=== PATIENT | female | born 1975 | race Caucasian/White ===

== ENCOUNTER 2017-03-19 10:44 | Emergency (ER) | payer OTHER ==
[~2017-03-19] VITALS: Ht 162.6 cm; Wt 80.0 kg
[~2017-03-19 10:44] MED LIST: ALBU8.5H5 INH; PRED50TA PO; PROM6.25 PO; QUET50TA4
[2017-03-19 10:53] VITALS: Ht 162.6 cm; Wt 80.0 kg
[2017-03-19 11:17] LABS: BASOPHIL # 0.1 10^3/ul (0.0-0.1); BASOPHILS % 0.5 % (0.0-2.0); EOSINOPHILS # 0.3 10^3/ul (0.0-0.5); EOSINOPHILS % 2.7 % (0.0-7.0); HEMATOCRIT 39.3 % (37.0-47.0); HEMOGLOBIN 12.9 g/dl (12.0-16.0); LYMPHOCYTES # 3.1 10^3/ul (0.8-2.9); LYMPHOCYTES % 28.3 % (15.0-51.0); MEAN CORPUSCULAR HEMOGLOBIN 29.2 pg (29.0-33.0); MEAN CORPUSCULAR HGB CONC 32.8 g/dl (32.0-37.0); MEAN CORPUSCULAR VOLUME 88.9 fl (82.0-101.0); MEAN PLATELET VOLUME 10.2 fl (7.4-10.4); MONOCYTE # 0.7 10^3/ul (0.3-0.9); MONOCYTES % 6.6 % (0.0-11.0); NEUTROPHIL # 6.7 10^3/ul (1.6-7.5); NEUTROPHILS % 61.4 % (39.0-77.0); PLATELET COUNT 341 10^3/UL (140-415); RED BLOOD COUNT 4.42 10^6/ul (4.20-5.40); RED CELL DISTRIBUTION WIDTH 13.3 % (11.5-14.5); WHITE BLOOD COUNT 10.9 10^3/ul (4.8-10.8)
--- NOTE | 2017-03-19 11:35 | RADRPT ---
PROCEDURE: XR Chest AP portable CLINICAL INDICATION: Chest pain TECHNIQUE: An AP portable radiograph of the chest was submitted. COMPARISON: 04/25/2015 FINDINGS: Support Hardware: None Cardiovascular: The cardiovascular silhouette appears unremarkable. Lung Wray: The lung wray appear clear with no nodule, alveolar infiltrate, or interstitial promi nence evident. Pleural Spaces: No pneumothorax or pleural effusion is identified. Osseous Structures: The osseous structures appear intact. Soft Tissues: The soft tissues appear unremarkable. IMPRESSION: Stable and unremarkable portable chest. Physician Sharla Date Time Electronically viewed and signed by Marie Humphries Physician on 03/19/2017 11:35 RH/
[2017-03-19 11:37] LABS: ANION GAP 14 (8-16); BLOOD UREA NITROGEN 12 mg/dl (7-20); CALCIUM 8.9 mg/dl (8.4-10.2); CARBON DIOXIDE 26 mmol/L (21-31); CHLORIDE 104 mmol/L (97-110); CREATININE 0.66 mg/dl (0.44-1.00); GLUCOSE 167 mg/dl (70-220); SODIUM 140 mmol/L (135-144)
--- NOTE | 2017-03-19 11:37 | ERD ---
ER Documentation Chief Complaint Chief Complaint chest pain x 30 min [place], pain improving after nitro given by ems HPI This is a 41-year-old female with a history of schizophrenia who is presenting with chest pain for approximately 15 minutes. She developed right-sided nonradiating chest pain that developed while she was at [employer] today. The patient was given aspirin and nitro by paramedics and her pain resolved. She does endorse a history of anxiety and did feel anxious during this time, but she did not have any eliciting factors that she reports. She currently is pain- free. She does not endorse shortness of breath. She does not endorse diaphoresis. This is never happened before. She does not have a cardiac history. She does not endorse a history of heart attack and her family. She has a secondary complaint of feeling like her ears are clogged and wanted them to be evaluated. The patient denies feeling sick recently. The patient denies fever or chills. The patient has had no headache or vision changes. The patient denies lightheadedness or dizziness. The patient denies abdominal pain or changes to bowel movements or urination. The patient has had no focal deficits. The patient has had no weakness or numbness or tingling to the face or extremities. ROS All systems reviewed and are negative except as per history of present illness. Medications Home Meds Active Scripts Albuterol Sulfate* (Albuterol Sulfate* HFA) 8.5 Gm Hfa.aer.ad, 1-2 PUFF INH Q4 Y for SHORTNESS OF BREATH, #1 EA Prov:JEANNIE DURAN PA-C 04/25/15 Reported Medications Lurasidone Hcl (LATUDA) 40 Mg Tablet, 40 MG PO QHS, #30 TAB 03/19/17 Citalopram Hydrobromide* (Citalopram Hydrobromide*) 20 Mg Tablet, 20 MG PO DAILY , #30 TAB 03/19/17 Discontinued Reported Medications Quetiapine Fumarate* (Seroquel* XR) 50 Mg Tab.sr.24h 02/11/13 Discontinued Scripts Promethazine w/Codeine* (Phenergan w/Codeine* Syrup) 5 Ml Syrup, 5 ML PO Q4H Y for COUGH, #4 OZ Prov:JEANNIE DURAN PA-C 04/25/15 Prednisone* (Prednisone*) 50 Mg Tablet, 50 MG PO DAILY, #3 TAB Prov:JEANNIE DURAN PA-C 04/25/15 Allergies Allergies: Coded Allergies: Penicillins (Verified Allergy, Unknown, 03/19/17) codeine (Verified Allergy, Unknown, 03/19/17) ibuprofen (Verified Allergy, Unknown, 03/19/17) PMhx/Soc History of Surgery: Yes (TUBULIGATION) Anesthesia Reaction: No Hx Neurological Disorder: No Hx Respiratory Disorders: Yes (ASTHMA) Hx Cardiac Disorders: Yes (HTN) Hx Psychiatric Problems: No Hx Miscellaneous Medical Probl: Yes (BIPOLAR, dm not compliant off meds for over a year) Hx Alcohol Use: Yes (OCASSIONALLY) Hx Substance Use: No Hx Tobacco Use: Yes Smoking Status: Light tobacco smoker FmHx Family History: No diabetes Physical Exam Vitals Vital Signs Date Time Temp Pulse Resp B/P Pulse Ox O2 Delivery O2 Flow Rate FiO2 03/19/17 11:00 Nasal Cannula 2 03/19/17 10:53 97.8 84 18 128/84 100 Physical Exam Const: No apparent distress, well-developed, well-nourished Head: Atraumatic Eyes: Normal Conjunctiva. Extraocular movements intact. ENT: Normal External Ears, Nose and Mouth. Mild cerumen in the external auditory canals, but no impaction. Tympanic membranes are intact without bulging or erythema or fluid. Neck: Full range of motion. ~ No meningismus. Resp: Clear to auscultation bilaterally Cardio: Regular rate and rhythm, no murmurs Abd: Soft, non tender, non distended. Normal bowel sounds Skin: No petechiae or rashes Back: No midline or flank tenderness Ext: No cyanosis, or edema Neur: Awake and alert, oriented 4. Cranial nerves intact. No facial droop. Normal strength and sensation in all extremities. Coordination with finger to nose normal. Psych: Normal Mood and Affect Result Diagram: 03/19/17 1100 03/19/17 1100 Results 24 hrs Laboratory Tests Test 03/19/17 11:00 White Blood Count 10.910^3/ul Red Blood Count 4.4210^6/ul Hemoglobin 12.9g/dl Hematocrit 39.3% Mean Corpuscular Volume 88.9fl Mean Corpuscular Hemoglobin 29.2pg Mean Corpuscular Hemoglobin Concent 32.8g/dl Red Cell Distribution Width 13.3% Platelet Count 15642^3/UL Mean Platelet Volume 10.2fl Neutrophils % 61.4% Lymphocytes % 28.3% Monocytes % 6.6% Eosinophils % 2.7% Basophils % 0.5% Nucleated Red Blood Cells % 0.0/100WBC Neutrophils # 6.710^3/ul Lymphocytes # 3.110^3/ul Monocytes # 0.710^3/ul Eosinophils # 0.310^3/ul Basophils # 0.110^3/ul Nucleated Red Blood Cells # 0.010^3/ul Sodium Level 140mmol/L Potassium Level 4.0mmol/L Chloride Level 104mmol/L Carbon Dioxide Level 26mmol/L Anion Gap 14 Blood Urea Nitrogen 12mg/dl Creatinine 0.66mg/dl Glucose Level 167mg/dl Calcium Level 8.9mg/dl Troponin I < 0.012ng/ml [facility] MDM Patient's presentation warrants further investigation. I will complete a cardiac workup to evaluate for her chest pain. Her physical exam and vital signs are reassuring. Given her history, I have low suspicion. LABS The patient's blood work was obtained and reviewed. The patient seemed shows mild leukocytosis but no shift. The patient is afebrile, and I do not suspect a systemic infection. This is likely reactive. The patient is not anemic today. The patient's platelet count is unremarkable. The patient's CMP shows no signs of metabolic or electrolyte abnormality. The patient has normal renal function testing. The patient's troponin is negative. EKG EKG read by me: Rate/Rhythm: Regular rate at 83 bpm. Sinus arrhythmia Intervals: Normal [place]: Normal Impression: No evidence of ischemia IMAGING CXR FINDINGS: Support Hardware: None Cardiovascular: The cardiovascular silhouette appears unremarkable. Lung Wray: The lung wray appear clear with no nodule, alveolar infiltrate, or interstitial prominence evident. Pleural Spaces: No pneumothorax or pleural effusion is identified. Osseous Structures: The osseous structures appear intact. Soft Tissues: The soft tissues appear unremarkable. IMPRESSION: Stable and unremarkable portable chest. Electronically viewed and signed by Physician Sharla on 03/19/2017 11:35 TREATMENT/DISPOSITION The patient's blood work, EKG, chest x-ray and physical exam are reassuring. The patient's heart score is 0. I do believe that the patient requires evaluation for her pain, but this may be done as an outpatient. The patient needs to follow-up with her primary care physician in 1-3 days for reevaluation. She may require an outpatient stress test. She will be given precautions with which to return to the emergency department. At this time, her pain has resolved. She is stable for discharge. Her blood pressure was mildly elevated. The patient needs to follow-up with her physician for recheck of this as well. Departure Diagnosis: Primary Impression: Chest pain Chest pain type: unspecified Qualified Code: R07.9 - Chest pain, unspecified type Condition: CROW Jamil MD Mar 19, 2017 11:37
[2017-03-19 11:55] LABS: TROPONIN-I < 0.012 ng/ml (0.00-0.12)
[2017-03-19] MEDS ORDERED: CITA20TA6 PO (12:17)
[2017-03-19] MEDS ORDERED: LURA40TA PO (12:18)
[2017-03-19 14:20] VITALS: BP 121/82; PULSE 88; RESP 16; TEMP 98.1
== END 2017-03-19 14:20 | disposition home or self-care (01) ==
LOC: E/R 10:44
DX: R07.9 Chest pain, unspecified (principal); J45.909 Unspecified asthma, uncomplicated; I10 Essential (primary) hypertension; F17.210 Nicotine dependence, cigarettes, uncomplicated
CPT/HCPCS: 36415; 71010; 80048; 84484; 85025; 93005